=== PATIENT | male | born 1950 | race African-American/Black ===

== ENCOUNTER 2021-10-07 14:01 | Inpatient (IN) ==
[2021-10-07 17:10] LABS: Basophils % 0.2 % (0.0-0.8); Hematocrit 35.4 VOL% (42.0-52.0); Hemoglobin 11.2 GM/DL (14.0-18.0); Immature Granulocytes % 1.8 %; Immature Granulocytes Absolute 0.32 #; Lymphocytes # 1.4 10*3/uL (1.4-4.0); Lymphocytes % 7.9 % (21.2-54.2); Mean Corpuscular HGB Conc 31.6 GM/DL (32-36); Mean Corpuscular Volume 87.8 FL (87-102); Mean Platelet Volume 8.9 FL (9.6-12.0); Monocytes % 6.6 % (1.7-12.7); Neutrophils % 83.5 % (38.7-73.9); Platelet Count 197 T/CUMM (130-400); Red Blood Count 4.03 MC/CUMM (3.8-5.5); Red Cell Distribution Width 14.6 % (9.3-17.3); White Blood Count 17.9 T/CUMM (4-12)
[2021-10-07 17:27] LABS: Bilirubin,Total 1.8 MG/DL (0.20-1.00); Calcium 9.3 MG/DL (8.5-10.1); Osmolality,Calculated 266.8 MOS/KG (273-304); Potassium 3.7 MMOL/L (3.5-5.1); Total Protein 7.9 G/DL (6.4-8.2)
[2021-10-07 17:50] LABS: Band Neutrophils 2 % (0-10); Lymphocytes 6 % (20-55); Nucleated Red Blood Cells 1 (0-5); Segmented Neutrophils 87 % (50-85); Total Cells Counted 100
[2021-10-07 17:51] LABS: Burr Cells Slight
[2021-10-07 17:52] LABS: Microcytosis Slight; Platelet Estimate Adequate; Reactive Lymphocytes Slight
[2021-10-07] MEDS ORDERED: SODIUM CHLORIDE 0.9% 1,000 ML IV STA (17:55)
[2021-10-07] MEDS ORDERED: GLUCAGON 1 MG VIAL IM PRN (18:06)
[2021-10-07] MEDS ORDERED: ACETAMINOPHEN 325 MG TABLET PO PRN (18:06)
[2021-10-07] MEDS ORDERED: ONDANSETRON 4 MG/2 ML VIAL IV PRN (18:06)
[2021-10-07] MEDS ORDERED: PIPERACILLIN/TAZOBACTAM 2,250 MG in SODIUM CHLORIDE 0.9% 100 ML IV STA (18:08)
[2021-10-07] MEDS ORDERED: PIPERACILLIN/TAZOBACTAM 3,375 MG in SODIUM CHLORIDE 0.9% 100 ML IV STA (18:09)
[2021-10-07] MEDS ORDERED: DEXTROSE 50% 25 GM/50 ML SYRINGE IV PRN (18:24)
[2021-10-07] MEDS: SODIUM CHLORIDE 0.9% 1,000 ML IV SCH (20:13)
[2021-10-07 20:50] LABS: Bilirubin,Urine Negative (Negative); Blood, Urine Moderate mg/dL (Negative); Glucose,Urine (UA) 50 mg/dL (Negative); Ketones,Urine Negative (Negative); Mucus,Urine Occasional /LPF (Occasional); Nitrite,Urine Negative (Negative); Protein,Urine 30 MG/DL; RBC,Urine 4 /HPF (0-4); Urine Appearance CLOUDY (Clear); Urine Color Yellow (Yellow); Urine Specific Gravity 1.011 (1.001-1.035); Urine Urobilinogen < 2.0 EU/DL (0.2-1.0)
[2021-10-07] MEDS: INSULIN REGULAR 100 UNIT/ML SUBCUT SCH (21:37)
[2021-10-08] MEDS: PIPERACILLIN/TAZOBACTAM 3,375 MG in SODIUM CHLORIDE 0.9% 100 ML IV SCH ×3 (02:50→18:37)
[2021-10-08] MEDS: SODIUM CHLORIDE 0.9% 1,000 ML IV SCH ×2 (02:51→10:30)
[2021-10-08 07:13] LABS: Basophils % 0.2 % (0.0-0.8); Eosinophils % 0.1 % (0.00-10.9); Hematocrit 31.4 VOL% (42.0-52.0); Immature Granulocytes % 2.6 %; Immature Granulocytes Absolute 0.44 #; Lymphocytes # 1.5 10*3/uL (1.4-4.0); Lymphocytes % 8.8 % (21.2-54.2); Mean Corpuscular HGB Conc 31.8 GM/DL (32-36); Mean Platelet Volume 9.3 FL (9.6-12.0); Monocytes % 5.9 % (1.7-12.7); Neutrophils % 82.4 % (38.7-73.9); Platelet Count 202 T/CUMM (130-400); Red Blood Count 3.61 MC/CUMM (3.8-5.5); Red Cell Distribution Width 14.6 % (9.3-17.3); White Blood Count 17.2 T/CUMM (4-12)
[2021-10-08 07:28] LABS: Albumin 2.6 G/DL (3.4-5.0); Bilirubin,Total 1.4 MG/DL (0.20-1.00); Calcium 8.8 MG/DL (8.5-10.1); Osmolality,Calculated 274.8 MOS/KG (273-304); Potassium 3.5 MMOL/L (3.5-5.1); Total Protein 7.1 G/DL (6.4-8.2)
[2021-10-08] MEDS: INSULIN REGULAR 100 UNIT/ML SUBCUT SCH ×4 (07:29→21:27)
[2021-10-08 07:34] LABS: Hypochromasia 1+; Lymphocytes 11 % (20-55); Microcytosis 1+; Platelet Estimate Adequate; Segmented Neutrophils 84 % (50-85); Total Cells Counted 100
[2021-10-08] MEDS: PANTOPRAZOLE 40 MG TABLET PO SCH (09:09)
[2021-10-09] MEDS: SODIUM CHLORIDE 0.9% 1,000 ML IV SCH ×2 (01:06→18:04)
[2021-10-09] MEDS: PIPERACILLIN/TAZOBACTAM 3,375 MG in SODIUM CHLORIDE 0.9% 100 ML IV SCH ×3 (03:38→17:39)
[2021-10-09 06:50] LABS: Basophils % 0.2 % (0.0-0.8); Eosinophils # 0.1 10*3/uL (0.0-0.87); Eosinophils % 0.4 % (0.00-10.9); Hematocrit 32.8 VOL% (42.0-52.0); Hemoglobin 10.3 GM/DL (14.0-18.0); Immature Granulocytes % 0.6 %; Lymphocytes # 1.8 10*3/uL (1.4-4.0); Lymphocytes % 11.5 % (21.2-54.2); Mean Corpuscular HGB Conc 31.4 GM/DL (32-36); Mean Corpuscular Volume 89.4 FL (87-102); Mean Platelet Volume 9.7 FL (9.6-12.0); Monocytes % 5.4 % (1.7-12.7); Neutrophils % 81.9 % (38.7-73.9); Platelet Count 219 T/CUMM (130-400); Red Blood Count 3.67 MC/CUMM (3.8-5.5); Red Cell Distribution Width 14.6 % (9.3-17.3); White Blood Count 15.6 T/CUMM (4-12)
[2021-10-09 07:15] LABS: Band Neutrophils 1 % (0-10); Eosinophils 2 % (0-10); Hypochromasia 1+; Lymphocytes 17 % (20-55); Microcytosis 1+; Platelet Estimate Adequate; Segmented Neutrophils 77 % (50-85); Total Cells Counted 100
[2021-10-09 07:22] LABS: Albumin 2.5 G/DL (3.4-5.0); Bilirubin,Total 1.6 MG/DL (0.20-1.00); Calcium 9.3 MG/DL (8.5-10.1); Osmolality,Calculated 278.7 MOS/KG (273-304); Potassium 3.5 MMOL/L (3.5-5.1); Total Protein 7.3 G/DL (6.4-8.2)
[2021-10-09] MEDS: INSULIN REGULAR 100 UNIT/ML SUBCUT SCH ×4 (08:54→21:55)
[2021-10-09] MEDS: PANTOPRAZOLE 40 MG TABLET PO SCH (08:54)
[2021-10-09] MEDS: ATORVASTATIN 40 MG TABLET PO SCH (21:55)
[2021-10-10] MEDS: PIPERACILLIN/TAZOBACTAM 3,375 MG in SODIUM CHLORIDE 0.9% 100 ML IV SCH (03:15)
[2021-10-10 06:07] LABS: Basophils % 0.3 % (0.0-0.8); Eosinophils # 0.1 10*3/uL (0.0-0.87); Eosinophils % 0.6 % (0.00-10.9); Hematocrit 31.4 VOL% (42.0-52.0); Immature Granulocytes % 2.4 %; Immature Granulocytes Absolute 0.34 #; Lymphocytes # 2.3 10*3/uL (1.4-4.0); Lymphocytes % 16.2 % (21.2-54.2); Mean Corpuscular HGB Conc 31.8 GM/DL (32-36); Mean Corpuscular Volume 87.7 FL (87-102); Mean Platelet Volume 9.3 FL (9.6-12.0); Monocytes % 9.6 % (1.7-12.7); Neutrophils % 70.9 % (38.7-73.9); Platelet Count 253 T/CUMM (130-400); Red Blood Count 3.58 MC/CUMM (3.8-5.5); Red Cell Distribution Width 14.6 % (9.3-17.3); White Blood Count 14.1 T/CUMM (4-12)
[2021-10-10 06:27] LABS: Calcium 9.2 MG/DL (8.5-10.1); Potassium 3.4 MMOL/L (3.5-5.1)
[2021-10-10 06:29] LABS: Platelet Estimate Normal
[2021-10-10 06:30] LABS: Anisocytosis 1+; Burr Cells Few; Tear Drop Cells Few
[2021-10-10 06:31] LABS: Macrocytosis Slight
[2021-10-10] MEDS: INSULIN REGULAR 100 UNIT/ML SUBCUT SCH ×4 (08:51→20:24)
[2021-10-10] MEDS: PANTOPRAZOLE 40 MG TABLET PO SCH (08:52)
[2021-10-10] MEDS ORDERED: LEVOFLOXACIN INJ 500 MG/100 ML PREMIX IV ONE (09:00)
[2021-10-10] MEDS ORDERED: fentaNYL 100 MCG/2 ML VIAL ONE (11:23)
[2021-10-10] MEDS ORDERED: MIDAZOLAM 2 MG/2 ML VIAL ONE (11:24)
[2021-10-10] MEDS ORDERED: ONDANSETRON 4 MG/2 ML VIAL ONE (11:37)
[2021-10-10] MEDS ORDERED: propofoL 200 MG/20 ML VIAL IV ONE (11:37)
[2021-10-10] MEDS ORDERED: LIDOCAINE 2% 5 ML VIAL ONE (11:37)
[2021-10-10] MEDS ORDERED: SEVOFLURANE 1 UNIT/15 MINUTE INH ONE (11:37)
[2021-10-10] MEDS ORDERED: LACTATED RINGERS 1,000 ML IV ONE (12:07)
[2021-10-10] MEDS ORDERED: OXYBUTYNIN 5 MG TABLET PO PRN (13:04)
[2021-10-10 13:26] LABS: Basophils # 0.1 10*3/uL (0.0-0.2); Basophils % 0.4 % (0.0-0.8); Eosinophils # 0.1 10*3/uL (0.0-0.87); Eosinophils % 0.5 % (0.00-10.9); Hematocrit 33.8 VOL% (42.0-52.0); Hemoglobin 10.5 GM/DL (14.0-18.0); Immature Granulocytes % 4.6 %; Immature Granulocytes Absolute 0.54 #; Lymphocytes # 2.1 10*3/uL (1.4-4.0); Lymphocytes % 18.4 % (21.2-54.2); Mean Corpuscular HGB Conc 31.1 GM/DL (32-36); Mean Corpuscular Volume 88.5 FL (87-102); Mean Platelet Volume 9.1 FL (9.6-12.0); Monocytes % 9.8 % (1.7-12.7); Neutrophils % 66.3 % (38.7-73.9); Platelet Count 258 T/CUMM (130-400); Red Blood Count 3.82 MC/CUMM (3.8-5.5); Red Cell Distribution Width 14.8 % (9.3-17.3); White Blood Count 11.6 T/CUMM (4-12)
[2021-10-10 13:44] LABS: Calcium 8.6 MG/DL (8.5-10.1); Osmolality,Calculated 283.4 MOS/KG (273-304); Potassium 3.6 MMOL/L (3.5-5.1)
[2021-10-10] MEDS: SODIUM CHLORIDE 0.9% 1,000 ML IV SCH ×2 (13:54→23:45)
[2021-10-10] MEDS: MORPHINE 2 MG/1 ML SYRINGE IV PRN ×3 (14:27→22:45)
[2021-10-10 15:29] LABS: Band Neutrophils 1 % (0-10); Eosinophils 1 % (0-10); Hypochromasia Slight; Lymphocytes 26 % (20-55); Macrocytosis Slight; Platelet Estimate Normal; Segmented Neutrophils 68 % (50-85); Total Cells Counted 100
[2021-10-10] MEDS: CIPROFLOXACIN INJ 400 MG/200 ML PREMIX IV SCH (17:09)
[2021-10-10] MEDS ORDERED: GLUCAGON 1 MG VIAL IM PRN (17:28)
[2021-10-10] MEDS ORDERED: DEXTROSE 50% 25 GM/50 ML SYRINGE IV PRN (17:37)
[2021-10-10] MEDS ORDERED: LACTULOSE 20 GM/30 ML UDCUP PO ONE (18:20)
[2021-10-10] MEDS: ATORVASTATIN 40 MG TABLET PO SCH (20:24)
[2021-10-10] MEDS: DOCUSATE SODIUM 100 MG CAPSULE PO SCH (20:24)
[2021-10-11 06:11] LABS: Basophils # 0.1 10*3/uL (0.0-0.2); Basophils % 0.5 % (0.0-0.8); Eosinophils # 0.1 10*3/uL (0.0-0.87); Eosinophils % 0.7 % (0.00-10.9); Hematocrit 33.7 VOL% (42.0-52.0); Hemoglobin 10.9 GM/DL (14.0-18.0); Immature Granulocytes % 6.2 %; Immature Granulocytes Absolute 0.73 #; Lymphocytes # 2.3 10*3/uL (1.4-4.0); Lymphocytes % 19.1 % (21.2-54.2); Mean Corpuscular HGB Conc 32.3 GM/DL (32-36); Mean Corpuscular Volume 87.1 FL (87-102); Mean Platelet Volume 8.8 FL (9.6-12.0); Monocytes % 11.8 % (1.7-12.7); Neutrophils % 61.7 % (38.7-73.9); Platelet Count 276 T/CUMM (130-400); Red Blood Count 3.87 MC/CUMM (3.8-5.5); Red Cell Distribution Width 14.8 % (9.3-17.3); White Blood Count 11.8 T/CUMM (4-12)
[2021-10-11 06:30] LABS: Calcium 8.5 MG/DL (8.5-10.1); Osmolality,Calculated 278.7 MOS/KG (273-304); Potassium 3.2 MMOL/L (3.5-5.1)
[2021-10-11] MEDS: MORPHINE 2 MG/1 ML SYRINGE IV PRN (06:30)
[2021-10-11] MEDS: CIPROFLOXACIN INJ 400 MG/200 ML PREMIX IV SCH ×2 (06:30→18:26)
[2021-10-11 06:55] LABS: Band Neutrophils 2 % (0-10); Eosinophils 2 % (0-10); Lymphocytes 22 % (20-55); Platelet Estimate Adequate; Promyelocytes 1 %; Segmented Neutrophils 61 % (50-85); Total Cells Counted 100
[2021-10-11 06:57] LABS: Acanthocytes Few; Hypochromasia 1+
[2021-10-11] MEDS: DOCUSATE SODIUM 100 MG CAPSULE PO SCH ×2 (09:50→21:10)
[2021-10-11] MEDS: POLYETHYLENE GLYCOL POWDER 17 GM PACK PO SCH (09:50)
[2021-10-11] MEDS: PANTOPRAZOLE 40 MG TABLET PO SCH (09:50)
[2021-10-11] MEDS: INSULIN REGULAR 100 UNIT/ML SUBCUT SCH ×4 (09:57→21:09)
[2021-10-11] MEDS: POTASSIUM CHLORIDE RIDER 10 MEQ/100 ML PREMIX IV PRN ×4 (10:05→15:03)
[2021-10-11] MEDS ORDERED: INSULIN GLARGINE 100 UNIT/ML SUBCUT SCH (21:00)
[2021-10-11] MEDS: ATORVASTATIN 40 MG TABLET PO SCH (21:10)
[2021-10-11] MEDS: SODIUM CHLORIDE 0.9% 1,000 ML IV SCH ×2 (23:07→23:08)
[2021-10-11] MEDS: POTASSIUM CHLORIDE 20 MEQ TABLET PO PRN (23:11)
[2021-10-12] MEDS: SODIUM CHLORIDE 0.9% 1,000 ML IV SCH ×2 (00:44→22:30)
[2021-10-12] MEDS: POTASSIUM CHLORIDE 20 MEQ TABLET PO PRN (00:45)
[2021-10-12 13:17] LABS: Calcium 8.9 MG/DL (8.5-10.1); Osmolality,Calculated 276.8 MOS/KG (273-304); Potassium 3.7 MMOL/L (3.5-5.1)
[2021-10-12 13:30] LABS: Basophils # 0.1 10*3/uL (0.0-0.2); Basophils % 0.6 % (0.0-0.8); Eosinophils # 0.2 10*3/uL (0.0-0.87); Eosinophils % 1.3 % (0.00-10.9); Hematocrit 33.3 VOL% (42.0-52.0); Hemoglobin 10.6 GM/DL (14.0-18.0); Immature Granulocytes % 5.2 %; Immature Granulocytes Absolute 0.63 #; Lymphocytes # 2.8 10*3/uL (1.4-4.0); Lymphocytes % 23.3 % (21.2-54.2); Mean Corpuscular HGB Conc 31.8 GM/DL (32-36); Mean Corpuscular Volume 86.5 FL (87-102); Mean Platelet Volume 9.5 FL (9.6-12.0); Monocytes % 9.7 % (1.7-12.7); Neutrophils % 59.9 % (38.7-73.9); Platelet Count 309 T/CUMM (130-400); Red Blood Count 3.85 MC/CUMM (3.8-5.5); Red Cell Distribution Width 14.6 % (9.3-17.3); White Blood Count 12.1 T/CUMM (4-12)
[2021-10-12] MEDS: INSULIN REGULAR 100 UNIT/ML SUBCUT SCH ×3 (13:59→21:45)
[2021-10-12] MEDS: CIPROFLOXACIN INJ 400 MG/200 ML PREMIX IV SCH ×2 (13:59→17:16)
[2021-10-12] MEDS: POLYETHYLENE GLYCOL POWDER 17 GM PACK PO SCH (14:00)
[2021-10-12] MEDS: DOCUSATE SODIUM 100 MG CAPSULE PO SCH ×2 (14:00→20:59)
[2021-10-12] MEDS: PANTOPRAZOLE 40 MG TABLET PO SCH (14:00)
[2021-10-12 16:07] LABS: Bilirubin,Urine Negative (Negative); Blood, Urine Large mg/dL (Negative); Glucose,Urine (UA) 50 mg/dL (Negative); Ketones,Urine Negative (Negative); Mucus,Urine Occasional /LPF (Occasional); Nitrite,Urine Negative (Negative); Protein,Urine 100 MG/DL; RBC,Urine 309 /HPF (0-4); Urine Appearance Slightly Hazy (Clear); Urine Color Yellow (Yellow); Urine Specific Gravity 1.018 (1.001-1.035); Urine Urobilinogen < 2.0 EU/DL (0.2-1.0)
[2021-10-12 17:16] LABS: Eosinophils 1 % (0-10); Hypochromasia 2+; Lymphocytes 29 % (20-55); Ovalocytes Slight; Platelet Estimate Normal; Segmented Neutrophils 66 % (50-85); Total Cells Counted 100
[2021-10-12] MEDS: ATORVASTATIN 40 MG TABLET PO SCH (20:59)
[2021-10-12] MEDS ORDERED: INSULIN GLARGINE 100 UNIT/ML SUBCUT SCH (21:00)
[2021-10-13] MEDS: SODIUM CHLORIDE 0.9% 1,000 ML IV SCH (01:20)
[2021-10-13 06:33] LABS: Basophils % 0.3 % (0.0-0.8); Eosinophils # 0.2 10*3/uL (0.0-0.87); Eosinophils % 1.7 % (0.00-10.9); Hematocrit 33.8 VOL% (42.0-52.0); Hemoglobin 10.8 GM/DL (14.0-18.0); Immature Granulocytes % 2.8 %; Immature Granulocytes Absolute 0.34 #; Lymphocytes # 2.9 10*3/uL (1.4-4.0); Lymphocytes % 23.6 % (21.2-54.2); Mean Corpuscular Volume 86.2 FL (87-102); Mean Platelet Volume 8.6 FL (9.6-12.0); Monocytes % 7.2 % (1.7-12.7); Neutrophils % 64.4 % (38.7-73.9); Platelet Count 389 T/CUMM (130-400); Red Blood Count 3.92 MC/CUMM (3.8-5.5); Red Cell Distribution Width 14.9 % (9.3-17.3); White Blood Count 12.1 T/CUMM (4-12)
[2021-10-13] MEDS: CIPROFLOXACIN INJ 400 MG/200 ML PREMIX IV SCH (06:40)
[2021-10-13 06:57] LABS: Calcium 9.2 MG/DL (8.5-10.1); Potassium 3.2 MMOL/L (3.5-5.1)
[2021-10-13] MEDS: PANTOPRAZOLE 40 MG TABLET PO SCH (08:59)
[2021-10-13] MEDS: POLYETHYLENE GLYCOL POWDER 17 GM PACK PO SCH (08:59)
[2021-10-13] MEDS: DOCUSATE SODIUM 100 MG CAPSULE PO SCH (08:59)
[2021-10-13] MEDS: POTASSIUM CHLORIDE 20 MEQ TABLET PO PRN (08:59)
[2021-10-13 11:45] VITALS: BP 144/83
[2021-10-13] MEDS: INSULIN REGULAR 100 UNIT/ML SUBCUT SCH (11:45)
== END 2021-10-13 12:15 | disposition home or self-care (01) | DRG 854 ==
LOC: N.ED 14:01 → N.EDINP 14:01 → SUATTDRO 10-08 08:33 → N.EDINP 10-08 13:55 → N.3E 10-08 14:19
PROVIDERS: ADMIT Internal Medicine; ATTEND Internal Medicine